=== PATIENT | female | born 1940 | race African-American/Black ===

== ENCOUNTER 2019-06-27 14:23 | Inpatient (IN) | payer BC, OTHER ==
[~2019-06-27] VITALS: Ht 167.6 cm; Wt 76.7 kg
[2019-06-27 23:19] LABS: Basophils # (auto) 0.1 uL; Basophils % (auto) 0.7 % (0.0-2.0); Eosinophils # (auto) 0.1 uL; Eosinophils % (auto) 1.3 % (0.0-7.0); Hematocrit 45.4 % (36.0-46.0); Hemoglobin 14.2 g/dL (12.2-16.2); Lymphocytes # (auto) 3.1 uL; Lymphocytes % (auto) 40.3 % (10.0-50.0); Mean Corpuscular Hemoglobin 23.4 pg (28.0-32.0); Mean Corpuscular Hgb Conc. 31.3 g/dL (32.0-36.0); Mean Corpuscular Volume 74.9 fL (80.0-100.0); Monocytes # (auto) 0.5 uL; Monocytes % (auto) 7.1 % (0.0-12.0); Neutrophils # (auto) 3.9 uL; Neutrophils % (auto) 50.6 % (37.0-80.0); Nucleated Red Blood Cells % 0.1 %; Platelet Count (auto) 191 10^3/uL (140-450); Red Blood Cells 6.06 10^6/uL (4.0-5.20); Red Cell Distribution Width 16.6 % (11.8-14.3); White Blood Cell 7.7 10^3/uL (4.4-10.8)
[2019-06-27 23:36] LABS: INR 1.1 (0.9-1.15); Partial Thromboplastin Time 28.8 sec (23.64-32.05)
[2019-06-27 23:37] LABS: Albumin 4.1 g/dL (3.4-5.0); Anion Gap 6 (5-15); BUN/Creatinine Ratio 9.6; Blood Urea Nitrogen 9 mg/dL (7-18); Calcium 10.8 mg/dL (8.5-10.1); Carbon Dioxide 26 mmol/L (21-32); Chloride 111 mmol/L (98-107); GFR African American 74 mL/min; GFR Non-African American 61 mL/min; Glucose 75 mg/dL (74-106); Potassium 3.9 mmol/L (3.5-5.1); Sodium 143 mmol/L (136-145)
[2019-06-27 23:42] LABS: Alanine Aminotransferase 20 U/L (13-56); Alkaline Phosphatase 123 U/L (45-117); Aspartate Aminotransferase 14 U/L (15-37); Bilirubin, Total 0.8 mg/dL (0.2-1.0); Total Protein 8.2 g/dL (6.4-8.2)
[2019-06-28] MEDS ORDERED: cloNIDine HCL 0.1 MG TAB PO ONE (00:30)
[2019-06-28] MEDS ORDERED: ATROPINE SULF 0.5 MG/5ML SYR ONE (01:39)
[2019-06-28] MEDS ORDERED: ATROPINE SULF 1 MG/10ml SYR IV ONE (01:45)
[2019-06-28] MEDS ORDERED: ATROPINE SULFATE 1 MG/1 ML VIAL ONE (05:02)
[2019-06-28] MEDS ORDERED: ACETAMINOPHEN 325 MG TAB PO PRN (09:15)
[2019-06-28] MEDS ORDERED: NITROGLYCERIN 0.4 MG SL TAB SL PRN (09:15)
[2019-06-28] MEDS ORDERED: MORPHINE SULF INJ 2 MG/ML SYRINGE 1ML IV PRN (09:15)
[2019-06-28] MEDS: SODIUM CHLORIDE 0.9% 1,000 ML IV SCH ×2 (09:36→17:25)
[2019-06-28] MEDS: LEVETIRACETAM 500 MG TAB PO SCH (09:37)
[2019-06-28] MEDS ORDERED: LISINOPRIL 20 MG TAB PO SCH (10:00)
[2019-06-28 10:49] LABS: Urine Bacteria NONE SEEN /hpf (None Seen); Urine Blood Negative /uL (Negative); Urine Mucus FEW (None Seen); Urine WBC 5 /hpf (0 - 5)
[2019-06-28] MEDS: cefTRIAXone 1GM/50ML D5W 50 ML IV SCH (12:28)
[2019-06-29] VITALS (7 sets, daily range): BP systolic 125–151; BP diastolic 60–86
[2019-06-29] MEDS: SODIUM CHLORIDE 0.9% 1,000 ML IV SCH ×3 (03:22→17:15)
[2019-06-29] MEDS: LEVETIRACETAM 500 MG TAB PO SCH ×3 (03:22→21:40)
[2019-06-29 07:24] LABS: Basophils # (auto) 0 uL; Eosinophils # (auto) 0.1 uL; Hemoglobin 13.1 g/dL (12.2-16.2); Mean Corpuscular Hemoglobin 23.5 pg (28.0-32.0); Monocytes # (auto) 0.5 uL; Neutrophils # (auto) 2.8 uL; Neutrophils % (auto) 51.3 % (37.0-80.0); White Blood Cell 5.4 10^3/uL (4.4-10.8)
[2019-06-29 07:28] LABS: Basophils % (auto) 0.3 % (0.0-2.0); Eosinophils % (auto) 2.4 % (0.0-7.0); Hematocrit 41.9 % (36.0-46.0); Lymphocytes % (auto) 36.8 % (10.0-50.0); Mean Corpuscular Hgb Conc. 31.3 g/dL (32.0-36.0); Mean Corpuscular Volume 74.9 fL (80.0-100.0); Monocytes % (auto) 9.2 % (0.0-12.0); Nucleated Red Blood Cells % 0.1 %; Platelet Count (auto) 171 10^3/uL (140-450); Red Blood Cells 5.59 10^6/uL (4.0-5.20); Red Cell Distribution Width 16.7 % (11.8-14.3)
--- NOTE | 2019-06-29 08:00 | NUR ---
Opening Shift Note Assumed care of patient, awake and alert. No S/S of distress/SOB or pain. See interventions for complete assessment. Bed locked on low position, side rails up x2, bed alarms on at all times, call penny within reach, instructed on POC and to call for assist PRN, will continue to monitor for changes Q1hr and PRN.
[2019-06-29 08:07] LABS: Albumin 3.2 g/dL (3.4-5.0); Anion Gap 7 (5-15); Aspartate Aminotransferase 12 U/L (15-37); BUN/Creatinine Ratio 18.8; Blood Urea Nitrogen 18 mg/dL (7-18); Calcium 9.8 mg/dL (8.5-10.1); Carbon Dioxide 23 mmol/L (21-32); Chloride 114 mmol/L (98-107); GFR African American 72 mL/min; GFR Non-African American 59 mL/min; Glucose 84 mg/dL (74-106); Magnesium 2.4 mg/dL (1.6-2.6); Potassium 4.3 mmol/L (3.5-5.1); Sodium 144 mmol/L (136-145)
[2019-06-29 08:33] LABS: Alanine Aminotransferase 16 U/L (13-56); Alkaline Phosphatase 96 U/L (45-117); Bilirubin, Total 0.5 mg/dL (0.2-1.0); Total Protein 6.6 g/dL (6.4-8.2)
[2019-06-29] MEDS: cefTRIAXone 1GM/50ML D5W 50 ML IV SCH (09:29)
[2019-06-29] MEDS: LISINOPRIL 10 MG TAB PO SCH (09:30)
--- NOTE | 2019-06-29 10:50 | NUR ---
IV insertion IV on RT wrist tender, discontinued. New IV access obtained, via clean sterile technique by inserting 22 gauge catheter at RT AC after two attempts by Kaitlin SHARMA. IV secured properly. No trauma to site. Patient tolerated procedure well.
--- NOTE | 2019-06-29 11:30 | NUR ---
Dr Nguyen at bedside, updated on patient's status. Informed of patient's HR 40's and informed of Telepsyche consult recommendation for inpatient psychiatric hospitalization. verbalized understanding. Receive verbal order for Social Service and Physical Therapy consult and to start patient on Ativan PRN. Orders read back and verified. Will carry out.
[2019-06-29] MEDS ORDERED: LORazepam 0.5 MG TAB PO PRN (12:00)
--- NOTE | 2019-06-29 12:01 | NUR ---
Received telephone order from Dr Nguyen to discontinue Rocephin and Keflex. Orders read back and verified. Will carry out.
--- NOTE | 2019-06-29 15:00 | NUR ---
Spoke to Man JACKSON, followed up on patient's PT consult.
--- NOTE | 2019-06-29 16:23 | NUR ---
Received referral for in psych facility after discharge. Pt is not stable at this time. Will follow up.
--- NOTE | 2019-06-29 16:49 | NUR ---
Received call from Clinical Documentation Developer Heriberto Rodriguez requesting this RN to fax Telepsyche Consult Report to her fax number [phone]. Fax number read back and verified. Will facilitate.
--- NOTE | 2019-06-29 17:03 | NUR ---
Telepsyche Consult Report faxed to Heriberto Rodriguez at fax number [phone]
[2019-06-30] VITALS: BP 149/79
--- NOTE | 2019-06-30 03:35 | NUR ---
AM CARE PATIENT ABLE TO INDEPENDENTLY CLEANSE SELF WITH CHG WIPES AND WARM WASH CLOTHS. FULL LINEN CHANGE DONE, NEW GOWN PLACED ON PATIENT. SKIN INTEGRITY REASSESSED: SKIN INTACT. PATIENT REPOSITIONED IN BED FOR COMFORT. CALL LIGHT GIVEN TO PATIENT.
[2019-06-30 04:00] VITALS: BP 138/88
[2019-06-30 07:47] VITALS: BP 136/75
--- NOTE | 2019-06-30 08:00 | NUR ---
Opening Shift Note Assumed care of patient, awake and alert. Patient A&Ox4. Patient on the monitor. Patient ambulatory with steady gait. IV right AC 22G saline locked. IV site red and patient states it is sore. IV removed, catheter intact upon removal, pressure dressing placed. Bed locked and in the lowest position, side rails up x2, call light with in reach. No S/S of distress/SOB or pain. Instructed on POC and to call for assist PRN. Will continue to monitor.
--- NOTE | 2019-06-30 08:30 | NUR ---
Patient sitting up in bedside chair eating breakfast. Will continue to monitor.
[2019-06-30] MEDS: SODIUM CHLORIDE 0.9% 1,000 ML IV SCH ×2 (08:59→10:26)
--- NOTE | 2019-06-30 09:00 | NUR ---
New IV placed right forearm 22G running NS at 125ml/hr, patent, clean, dry, and intact.
--- NOTE | 2019-06-30 10:00 | NUR ---
Medication dosages, usages, and side effects explained to patient. Patient verbalized understanding. Will continue to monitor.
--- NOTE | 2019-06-30 10:15 | NUR ---
Dr. Nguyen at bedside.
[2019-06-30] MEDS: LEVETIRACETAM 500 MG TAB PO SCH (10:25)
[2019-06-30] MEDS: LISINOPRIL 10 MG TAB PO SCH (10:25)
[2019-06-30 11:45] VITALS: BP 158/72
--- NOTE | 2019-06-30 11:51 | NUR ---
Received referral to see pt as placement in a psych hospital was the main objective. Pt is alert and orient times 3. However the pt states to the older adult social work specialist that she does not want placement and would rather go home. She is willing to go to a therapist for counseling. Pt states she recently lost her and her son and has been depressed. She further states she has not been able to sleep. Pt states she had had no suicidal thoughts or wants to hurt herself. Pt communicates rationally. Spoke with the nurse who stated they are going to do another tele-psych. Pt lives with family.
--- NOTE | 2019-06-30 12:30 | NUR ---
Patient sitting up in bed eating lunch independently. Will continue to monitor.
--- NOTE | 2019-06-30 15:30 | NUR ---
Patient sitting up in bed watching TV. No S/S of SOB/pain or distress noted at this time. Will continue to monitor.
[2019-06-30 15:45] VITALS: BP 150/76
--- NOTE | 2019-06-30 18:30 | NUR ---
End of shift note: Patient talking with Tele Psych doctor on bedside computer. Patient A&Ox4. Patient on the monitor. Patient ambulatory with steady gait. IV right forearm 22G running NS at 125ml/hr. Bed locked and in the lowest position, side rails up x2, call light with in reach. No S/S of distress/SOB or pain. Report to be given to warehouse shift supervisor RN. Will continue to monitor.
--- NOTE | 2019-06-30 19:30 | NUR ---
Spoke with Dr. Green Tele Psych . OK to discharge patient home with follow up care, recommends Celexa 10MG. Spoke with Dr. Nguyen. Give one time dose of Celexa 10MG now. Give Psych consult recommendations to Patient to take to appointment tomorrow to get prescription. Appointment tomorrow with Aure Mayer on 07/01/19 at 10AM Phone number is [phone].
--- NOTE | 2019-06-30 19:45 | NUR ---
MRSA NARES COLLECTED AND SENT TO LAB
[2019-06-30 20:00] VITALS: BP 153/84
[2019-06-30] MEDS ORDERED: CITALOPRAM HYDROBR 20 MG TAB PO ONE (20:15)
--- NOTE | 2019-06-30 20:41 | NUR ---
DISCHARGE HOME Discharge instructions given as ordered. Encourage to follow up with PMElla and Aure Mayer as instructed. All questions and concerns addressed. Patient verbalized understanding. Medication reconciliation form completed and copy given to patient. IV removed with catheter intact, pressure dressing applied. Patient taken to vehicle via wheelchair with all personal belongings, accompanied by staff and family member. No distress/SOB or pain noted at time of departure, one time dose of celexa given po per Dr. Nguyen orders.
--- NOTE | 2019-06-30 20:48 | NUR ---
VITAL SIGNS PRIOR TO DISCHARGE 98.8F, 47HEART RATE,RR 18, OXYGEN SATURATION 97% ON RA, BP 153/84
== END 2019-06-30 20:40 | disposition home health service (06) | DRG 310 ==
LOC: ER 14:23 → OVERFLOW 14:24 → DOU IN ICU 06-28 05:18
PROVIDERS: ADMIT Internal Medicine; ATTEND Internal Medicine
DX: I49.8 Other specified cardiac arrhythmias (principal); I10 Essential (primary) hypertension; G40.909 Epilepsy, unspecified, not intractable, without status epilepticus; F32.9 Major depressive disorder, single episode, unspecified; M19.90 Unspecified osteoarthritis, unspecified site; F41.9 Anxiety disorder, unspecified; Z86.73 Personal history of transient ischemic attack (TIA), and cerebral infarction without residual deficits; Z90.710 Acquired absence of both cervix and uterus; Z83.3 Family history of diabetes mellitus; Z82.49 Family history of ischemic heart disease and other diseases of the circulatory system; Z82.3 Family history of stroke; Z80.9 Family history of malignant neoplasm, unspecified; Z79.899 Other long term (current) drug therapy
CPT/HCPCS: 36415; 70450; 71045; 80053; 81001; 83605; 83735; 83880; 84439; 84443; 84484; 85025; 85610; 85730; 87040; 87081; 93306; 96374; 97163; G0378; J0461; J0696

== ENCOUNTER 2020-08-30 06:43 | Emergency (ER) | payer OTHER ==
[~2020-08-30] VITALS: Ht 157.5 cm; Wt 72.6 kg
[2020-08-30] MEDS ORDERED: cefTRIAXone 1GM/50ML D5W 50 ML IV ONE (07:30)
[2020-08-30 08:33] LABS: Basophils # (auto) 0 10 ^3/uL (0-0.2); Eosinophils # (auto) 0 10 ^3/uL (0-0.8); White Blood Cell 5.3 10^3/uL (4.4-10.8)
[2020-08-30 08:34] LABS: Basophils % (auto) 0.2 % (0.0-2.0); Hematocrit 41.5 % (36.0-46.0); Hemoglobin 13.2 g/dL (12.2-16.2); Lymphocytes % (auto) 19.5 % (10.0-50.0); Mean Corpuscular Hemoglobin 23.4 pg (28.0-32.0); Mean Corpuscular Hgb Conc. 31.8 g/dL (32.0-36.0); Mean Corpuscular Volume 73.6 fL (80.0-100.0); Monocytes # (auto) 0.7 10 ^3/uL (0-1.3); Monocytes % (auto) 12.5 % (0.0-12.0); Neutrophils # (auto) 3.6 10 ^3/uL (1.6-8.6); Neutrophils % (auto) 67.8 % (37.0-80.0); Platelet Count (auto) 129 10^3/uL (140-450); Red Blood Cells 5.64 10^6/uL (4.0-5.20); Red Cell Distribution Width 16.8 % (11.8-14.3)
[2020-08-30 09:03] LABS: BUN/Creatinine Ratio 9.4; Potassium 4.1 mmol/L (3.5-5.1)
[2020-08-30 09:04] LABS: Albumin 3.2 g/dL (3.4-5.0); Calcium 11.7 mg/dL (8.5-10.1)
[2020-08-30 09:06] LABS: Bilirubin, Total 0.5 mg/dL (0.2-1.0); Total Protein 7.4 g/dL (6.4-8.2)
[2020-08-30 09:10] VITALS: BP 138/69
[2020-08-30 10:36] LABS: Urine Bacteria NONE SEEN /hpf (None Seen); Urine Blood 1+ /uL (Negative); Urine Mucus FEW (None Seen); Urine Specific Gravity 1.016 (1.001-1.035); Urine WBC 1547 /hpf (0 - 5); Urine WBC Clumps PRESENT /hpf (None Seen)
== END 2020-08-30 13:29 | disposition home or self-care (01) ==
LOC: EDBD 06:43 → ER 06:43
DX: J06.9 Acute upper respiratory infection, unspecified (principal); N39.0 Urinary tract infection, site not specified; E44.1 Mild protein-calorie malnutrition; M19.90 Unspecified osteoarthritis, unspecified site; I10 Essential (primary) hypertension; Z20.828 Contact with and (suspected) exposure to other viral communicable diseases
CPT/HCPCS: 36415; 71045; 80053; 81001; 83605; 83880; 84484; 85025; 87040; 87426; 96365; 99284; C9803; J0696; U0003